=== PATIENT | male | born 1970 | race Caucasian/White ===

== ENCOUNTER → 2016-10-19 | Outpatient (CLI) | payer OTHER ==
[~2016-10-19] MED LIST: FLOMAX 0.4MG C0.4 MG PO; NAPROSYN 500MG500 MG PO; ZOLOFT25 MG PO
[2016-10-19 10:36] LABS: HEMOGLOBIN 15.2 g/dL (14.1-18.0)
[2016-10-19 10:37] LABS: LYMPH # 1.2 K/mm3 (0.7-4.5); LYMPH % 26.5 % (10-50)
[2016-10-19 12:39] LABS: BUN 9 mg/dL (7-18)
[2016-10-19 12:52] LABS: GFR (ESTIMATED) 81 ML/MIN (>60)
== END ==
LOC: LAB 10:23
PROVIDERS: Nurse Practitioner Family
DX: R74.8 Abnormal levels of other serum enzymes (principal); D72.819 Decreased white blood cell count, unspecified

== ENCOUNTER → 2016-12-17 | Outpatient (CLI) | payer OTHER ==
[2016-12-17 08:35] LABS: HEMOGLOBIN 15.9 g/dL (14.1-18.0); LYMPH # 1.5 K/mm3 (0.7-4.5); LYMPH % 23.1 % (10-50)
[2016-12-17 11:53] LABS: BUN 15 mg/dL (7-18)
[2016-12-17 11:57] LABS: GFR (ESTIMATED) 81 ML/MIN (>60)
[2016-12-18 07:42] LABS: HBsAg Screen Negative (Negative); Hep A Ab, IgM Negative (Negative); Hep B Core Ab, IgM Negative (Negative); Hep C Virus Ab <0.1 (0.0-0.9)
== END ==
LOC: LAB 08:23
PROVIDERS: Nurse Practitioner Family
DX: R74.8 Abnormal levels of other serum enzymes (principal)